=== PATIENT | male | born 1960 | race Caucasian/White ===

== ENCOUNTER 2020-04-21 22:32 | Inpatient (IN) | payer MEDICAID ==
[~2020-04-21] VITALS: Ht 177.8 cm; Wt 54.6 kg
[2020-04-21] MEDS ORDERED: MORPHINE SULFATE 4 MG/ML, 1ML IVPush PRN (23:00)
[2020-04-21] MEDS ORDERED: SODIUM CHLORIDE 0.9% 1,000ML IVBOLUS ONE (23:00)
[2020-04-21] MEDS ORDERED: SODIUM CHLORIDE FLUSH 10ML SYR IVF ONE (23:00)
[2020-04-21] MEDS ORDERED: ONDANSETRON 2MG/ML, 2ML IVPush ONE (23:00)
[2020-04-21] MEDS ORDERED: ONDANSETRON 2MG/ML, 2ML ONE (23:03)
[2020-04-21] MEDS ORDERED: MORPHINE SULFATE 4 MG/ML, 1ML ONE (23:06)
[2020-04-21 23:41] LABS: ALANINE AMINOTRANSFERASE 26 U/L (12-78); ALBUMIN 3.1 g/dL (3.4-5.0); ANION GAP 8 mmol/L (5-15); CALCIUM 7.4 mg/dL (8.5-10.1); CHLORIDE 110 mmol/L (98-107); CREATININE 0.71 mg/dL (0.7-1.3)
[2020-04-21 23:43] LABS: ALKALINE PHOSPHATASE 151 U/L (45-117); BILIRUBIN,TOTAL 0.4 mg/dL (0.2-1.0); TOTAL PROTEIN 6.4 g/dL (6.4-8.2)
[2020-04-22] MEDS ORDERED: MORPHINE SULFATE 4 MG/ML, 1ML IVPush PRN
[2020-04-22] MEDS ORDERED: POTASSIUM CHLORIDE 40 MEQ in SODIUM CHLORIDE 0.9% 500 ML IV ONE (00:30)
[2020-04-22] MEDS ORDERED: PROMETHAZINE 25 MG/ML, 1ML IM PRN (00:30)
[2020-04-22] MEDS ORDERED: THIAMINE 200 MG in SODIUM CHLORIDE 0.9% 50 ML IV ONE (00:30)
[2020-04-22] MEDS ORDERED: ONDANSETRON 2MG/ML, 2ML IVPush PRN ×2 (00:30)
[2020-04-22] MEDS ORDERED: BISACODYL 10 MG SUPP PR PRN (00:30)
[2020-04-22] MEDS ORDERED: DIPHENHYDRAMINE 50 MG CAPSULE PO PRN (00:30)
[2020-04-22] MEDS ORDERED: POLYETHYLENE GLYCOL 17 GM PACKET PO PRN (00:30)
[2020-04-22] MEDS ORDERED: METOCLOPRAMIDE 5 MG/ML, 2ML IVPush PRN (00:30)
[2020-04-22] MEDS ORDERED: LORazepam 2 MG/ML, 1ML IVPush PRN (00:30)
[2020-04-22] MEDS ORDERED: FOLIC ACID 1 MG in DEXTROSE 5% 50 ML IV SCH (00:30)
[2020-04-22] MEDS ORDERED: hydrALAzine 20 MG/ML, 1ML IVPush PRN (00:30)
[2020-04-22] MEDS ORDERED: PROMETHAZINE 25 MG/ML, 1ML ONE (01:13)
--- NOTE | 2020-04-22 01:22 | NUR ---
Report given to VICTOR M De Santiago. All questions answered.
[2020-04-22] MEDS: HYDROmorphone 2 MG/ML, 1ML IVPush PRN ×5 (02:01→22:52)
[2020-04-22 02:12] VITALS: BP 158/96
[2020-04-22] MEDS ORDERED: FOLIC ACID 1 MG TABLET PO ONE (02:15)
[2020-04-22] MEDS: LACTATED RINGERS 1,000 ML IV SCH ×3 (02:58→20:08)
[2020-04-22] MEDS: NICOTINE 21 MG/24 HR PATCH.TD24 TD SCH ×2 (02:58→23:49)
[2020-04-22 03:47] LABS: MICROSCOPIC AUTO
[2020-04-22 06:24] VITALS: BP 137/82
[2020-04-22] MEDS: PANTOPRAZOLE 40 MG IV IVPush SCH (07:33)
[2020-04-22] MEDS: SENNA/DOCUSATE TABLET PO SCH (07:40)
[2020-04-22 12:24] VITALS: BP 131/81
[2020-04-22] MEDS ORDERED: NALOXONE 1 MG/ML, 2ML ONE (14:43)
[2020-04-22] MEDS ORDERED: FENTANYL PF 100 MCG/2ML ONE ×2 (14:43)
[2020-04-22] MEDS ORDERED: FLUMAZENIL 0.1 MG/1 ML, 5ML ONE (14:43)
[2020-04-22] MEDS ORDERED: MIDAZOLAM 1 MG/ML, 5ML ONE ×2 (14:43)
[2020-04-22 18:56] VITALS: BP 127/78
[2020-04-23 00:29] VITALS: BP 120/71
[2020-04-23] MEDS: LACTATED RINGERS 1,000 ML IV SCH ×4 (03:06→22:23)
[2020-04-23 05:57] LABS: MEAN CORPUSCULAR HEMOGLOBIN 35.9 pg (27.5-34.5); MEAN CORPUSCULAR HGB CONC 32.6 g/dL (33.2-36.2); MEAN CORPUSCULAR VOLUME 110.1 fL (81-97); MEAN PLATELET VOLUME 7.4 fL (7.4-10.4); PLATELET COUNT 303 x10^3/uL (130-400); RED BLOOD COUNT 3.52 x10^6/uL (4.38-5.82); RED CELL DISTRIBUTION WIDTH 15.3 % (9.4-14.8)
[2020-04-23 06:02] LABS: CALCIUM 8.3 mg/dL (8.5-10.1); CHLORIDE 103 mmol/L (98-107)
[2020-04-23 06:17] LABS: ANION GAP 14 mmol/L (5-15); CREATININE 0.46 mg/dL (0.7-1.3)
[2020-04-23 06:18] LABS: CHOLESTEROL, TOTAL 177 mg/dL (140-239); HDL CHOL % 50 % (26-37); HDL CHOLESTEROL (DIRECT) 89 mg/dL (40-60); LDL CHOLESTEROL,CALCULATED 60 mg/dL (54-169); LDL/HDL RATIO 0.7 (0.5-3.0); TRIGLYCERIDES 140 mg/dL (50-200); VLDL CHOLESTEROL 28 mg/dL (0-25)
[2020-04-23 06:42] LABS: BASOPHILS # (AUTO) 0.02 x10^3/uL (0-0.1); BASOPHILS % (AUTO) 0 % (0-1); EOSINOPHILS # (AUTO) 0.06 x10^3/uL (0-0.4); EOSINOPHILS % (AUTO) 1 % (1-7); LYMPHOCYTES % (AUTO) 15 % (22-44); MD SCAN; MONOCYTES # (AUTO) 0.73 x10^3/uL (0.2-0.8); MONOCYTES % (AUTO) 8 % (2-9); NEUTROPHILS # (AUTO) 7.37 x10^3/uL (1.8-6.8); NEUTROPHILS % (AUTO) 77 % (42-75)
[2020-04-23 08:08] VITALS: BP 124/77
[2020-04-23] MEDS: SENNA/DOCUSATE TABLET PO SCH (08:44)
[2020-04-23] MEDS: PANTOPRAZOLE 40 MG IV IVPush SCH (08:48)
[2020-04-23] MEDS: HYDROmorphone 2 MG/ML, 1ML IVPush PRN ×4 (08:56→20:58)
[2020-04-23] MEDS ORDERED: POTASSIUM CHLORIDE 20 MEQ, MAGNESIUM SULFATE 1 GM, FOLIC ACID 1 MG, THIAMINE 200 MG, MV... IV ONE (09:00)
[2020-04-23] MEDS: TAMSULOSIN 0.4 MG CAP.ER.24H PO SCH (11:21)
[2020-04-23 15:43] VITALS: BP 130/84
[2020-04-23] MEDS: ENOXAPARIN 40 MG/0.4 ML SQ SCH (15:57)
[2020-04-23 19:26] VITALS: BP 137/82
[2020-04-24] MEDS: NICOTINE 21 MG/24 HR PATCH.TD24 TD SCH (00:07)
[2020-04-24 00:36] VITALS: BP 128/70
[2020-04-24] MEDS: LACTATED RINGERS 1,000 ML IV SCH (04:56)
[2020-04-24 07:39] VITALS: BP 154/84
[2020-04-24] MEDS: PANTOPRAZOLE 40 MG IV IVPush SCH (08:24)
[2020-04-24] MEDS: SENNA/DOCUSATE TABLET PO SCH (08:24)
[2020-04-24] MEDS: TAMSULOSIN 0.4 MG CAP.ER.24H PO SCH (08:24)
[2020-04-24] MEDS: HYDROmorphone 2 MG/ML, 1ML IVPush PRN (08:24)
[2020-04-24] MEDS ORDERED: KETOROLAC 30 MG/1 ML IVPush PRN (08:30)
[2020-04-24] MEDS: HYDROcodone/APAP 5/325 TABLET PO PRN ×2 (11:34→17:17)
[2020-04-24] MEDS: ENOXAPARIN 40 MG/0.4 ML SQ SCH (15:30)
[2020-04-24 15:31] VITALS: BP 116/75
[2020-04-24] MEDS ORDERED: TAMS-11 PO (15:40)
[2020-04-24] MEDS ORDERED: HYDR-3237 PO (15:40)
== END 2020-04-24 17:40 | disposition home or self-care (01) | DRG 282 ==
LOC: ED 23:11 → EDIP 23:52 → 3N 04-22 01:42
PROVIDERS: ADMIT Family Medicine; ATTEND Family Medicine
PROC: 0QB23ZX Excision of Right Pelvic Bone, Percutaneous Approach, Diagnostic (ICD-10-PCS; principal; 2020-04-22)
PROC: 07DS3ZX Extraction of Vertebral Bone Marrow, Percutaneous Approach, Diagnostic (ICD-10-PCS; 2020-04-22)
DX: K85.20 Alcohol induced acute pancreatitis without necrosis or infection (principal); D75.89 Other specified diseases of blood and blood-forming organs; E44.1 Mild protein-calorie malnutrition; Z68.1 Body mass index [BMI] 19.9 or less, adult; E83.42 Hypomagnesemia; E87.6 Hypokalemia; F10.20 Alcohol dependence, uncomplicated; F17.200 Nicotine dependence, unspecified, uncomplicated; I10 Essential (primary) hypertension; K40.90 Unilateral inguinal hernia, without obstruction or gangrene, not specified as recurrent; K86.0 Alcohol-induced chronic pancreatitis; M89.8X9 Other specified disorders of bone, unspecified site; N32.0 Bladder-neck obstruction; N40.0 Benign prostatic hyperplasia without lower urinary tract symptoms; K21.9 Gastro-esophageal reflux disease without esophagitis
CPT/HCPCS: 20225; 36415; 77012; 80048; 80053; 80061; 81001; 82306; 83690; 83735; 84100; 84425; 84443; 85025; 88307; 88311; 88341; 88342; 93005; 96361; 96374; 96375; 99156; 99157; G0378; J1170; J1650; J2250; J2405; J2550; J3010; J3411; J3475; J3480; C1769; C9113; J2270; J2310; J7030; J7040; J7120; J7121